=== PATIENT | male | born 1995 | race Hispanic/Latino ===

== ENCOUNTER 2024-07-14 09:44 | Emergency (ER) | payer OTHER, SELFPAY ==
--- NOTE | ~2024-07-14 | CT_ITS ---
EXAMINATION: CT thoracic lumbar wo con DATE: 07/14/2024 13:20 INDICATION: Trauma with chest wall pain post fall from 8 foot ceiling TECHNIQUE: Computed tomography (CT) of the thoracic and lumbar spine was performed without intravenou s contrast. Automated exposure control and iterative reconstruction technique were employed. The dose -length product was 2015.80 mGy-cm. COMPARISON: None FINDINGS: Thoracic spine: 8 degrees thoracic dextrocurvature. Sagittal alignment is normal. There is 12 paired rib bearing thor acic segments. Chronic appearing mild likely physiologic anterior wedging at T11. Vertebral body heig hts are otherwise normal. No acute fracture. Multilevel mild to moderate disc height loss throughout the thoracic spine. Multilevel moderate upper thoracic and mild mid and lower thoracic facet osteoart hritis. No central canal or neural foraminal stenosis. Mild discoid atelectasis in the dependent left lower lobe. Heart size appears normal. Thoracic aorta is normal in caliber. Small sliding-type hiata l hernia. Visualized portions of the mediastinum are unremarkable. Lumbar spine: There are 4 nonrib-bearing lumbar segments, L1-L4. 5 degrees lumbar levocurvature. Sagittal alignment is normal. Vertebral body and disc heights are normal. Mild disc bulges at L2-L3, L3-L4 and L4-S1 wi thout significant central canal stenosis. Multilevel mild lumbar facet osteoarthritis and mild osteoa rthritis at the bilateral sacroiliac joints. Minimal to mild bilateral neural from stenosis at L1-L2 through L3-L4. Paravertebral soft tissues are unremarkable. IMPRESSION: 1. Mild to moderate thoracic spondylosis and minimal lumbar spondylosis with chronic appearing mild l ikely physiologic anterior wedging at T11. No evident acute osseous abnormality in the thoracic or taylor mbar spine. Reviewed, dictated and finalized at location A. IMPRESSION: 1. Mild to moderate thoracic spondylosis and minimal lumbar spondylosis with ch ronic appearing mild likely physiologic anterior wedging at T11. No evident acu te osseous abnormality in the thoracic or lumbar spine.
--- NOTE | ~2024-07-14 | CT_ITS ---
EXAMINATION: CT cervical spine wo con DATE: 07/14/2024 13:20 INDICATION: Trauma with fall from 8 foot ceiling TECHNIQUE: Computed tomography (CT) of the cervical spine was performed without intravenous contrast. Automated exposure control and iterative reconstruction technique were employed. The dose-length pro duct was 442.70 mGy-cm. COMPARISON: None FINDINGS: Likely positional straightening of the normal cervical lordosis. No spondylolisthesis or facet sublux ation. Vertebral body heights are normal. No fracture. Disc heights are normal. Minimal to mild osteo arthritis at a few of the cervical facet and uncovertebral joints. There is moderate osteoarthritis a t the visualized upper thoracic facet joints. Cervical soft tissues are unremarkable. Visualized apic es of lungs are clear. IMPRESSION: 1. Minimal to mild cervical facet and uncovertebral osteoarthritis and moderate upper thoracic facet osteoarthritis. No acute osseous abnormality. Reviewed, dictated and finalized at location A.
--- NOTE | ~2024-07-14 | CT_ITS ---
EXAMINATION: CT brain wo con DATE: 07/14/2024 13:19 INDICATION: Trauma post fall from 8 foot ceiling. TECHNIQUE: Computed tomography (CT) of the head was performed without intravenous contrast. Sagittal and coronal reconstructions were performed. The mA was adjusted according to patient size. Iterative reconstruction technique was employed. The dose-length product was 605.33 mGy-cm. COMPARISON: None FINDINGS: No fracture. No acute intracranial hemorrhage, acute infarction or abnormal extra axial fluid collect ion. Ventricles are normal and symmetric. No mass/mass effect. The orbits and mastoid air cells are n ormal. There is some mucosal thickening in the left maxillary sinus. IMPRESSION: 1. Normal brain. No fracture or acute intracranial process. Reviewed, dictated and finalized at location A.
--- NOTE | ~2024-07-14 | XR_ITS ---
XR chest 1V portable Ordering provider: Kayden Alicia MD History: 29 years Male with . chest wall pain, trauma PT HAD A FALL . Comparison: None. FINDINGS: MEDIASTINUM: The cardiac silhouette is not enlarged. LUNGS: No infiltrates, effusions or pneumothorax. Slightly prominent markings in the lower lobes. OTHER: No free air under the diaphragm. Highly suggestive fracture in the right seventh rib. IMPRESSION: Highly suggestive fracture in the right seventh rib. Other appearances are unremarkable. Reviewed, dictated and finalized at location A.
[2024-07-14 09:47] VITALS: BP 131/76; PULSE 80; RESP 16; TEMP 36.3; O2SAT 99
[2024-07-14 14:09] VITALS: BP 123/65; PULSE 74; RESP 16; TEMP 36.3; O2SAT 99
--- OUTSIDE RECORDS SUMMARY | 2024-07-14 14:12 | XMS_ITS | Clinical Summary ---
Author Organization [facility] Address [facility] [place] [address] Care Team Providers [facility] Administrator Name Role Phone Brissa Betancourt MD Primary Care Provider + Allergies No known active allergies Medications No known medications Active Problems Problem Noted Date Diagnosed Date Obesity (BMI 30.0-34.9) 06/03/2024 Encounters Date Type Department Care Team Description 06/03/2024 9:10 AM AGRICULTURAL SCIENCES PROFESSOR Office Visit [facility] [address] [id number] Brissa Betancourt MD New Patient (Here to get established); Annual (Needing annual check up. He is going to bariatric doctor and he states he needs lab work. Pt is doing this online. ) 06/03/2024 - 06/03/2024 11:59 PM AGRICULTURAL SCIENCES PROFESSOR Hospital Encounter [facility] [place] [address] Brissa Betancourt MD Discharge Disposition: Home or Self Care (Routine Discharge) 06/03/2024 Travel from Last 3 Months Family History Medical History Relation Comments No Known Problems Father No Known Problems Mother No Known Problems Sister Relation Status Comments Father Alive Mother Alive Sister Alive Social History Tobacco Use Types Packs/Day Years Used Date Smoking Tobacco: Former Cigarettes - 2023 Passive Smoke Exposure: Never Smokeless Tobacco: Never Tobacco Cessation:Counseling Given: No Comments:Social/ vaped more then cigarettes. Alcohol Use Standard Drinks/Week Comments Yes 0 (1 standard drink = 0.6 oz pur e alcohol) socially, 2-3/weekend PHQ-2 Answer Date Recorded Patient Health Questionnaire-2 Score 0 06/03/2024 Sex and Gender Information Value Date Recorded Sex Assigned at Not on file Legal Sex Male 3:45 PM AGRICULTURAL SCIENCES PROFESSOR Gender Identity Not on file Sexual Orientation Not on file Last Filed Vital Signs Vital Sign Reading Time Taken Comments Blood Pressure 110/80 06/03/2024 9:20 AM AGRICULTURAL SCIENCES PROFESSOR Pulse 84 06/03/2024 9:20 AM AGRICULTURAL SCIENCES PROFESSOR Temperature 37.1 C (98.7 F) 06/03/2024 9:20 AM AGRICULTURAL SCIENCES PROFESSOR Respiratory Rate - - Oxygen Saturation 97% 06/03/2024 9:20 AM AGRICULTURAL SCIENCES PROFESSOR Inhaled Oxygen Concentration - - Weight 93.3 kg (205 lb 9.6 oz) 06/03/2024 9:20 A M AGRICULTURAL SCIENCES PROFESSOR Height 165.1 cm (5' 5 ) 06/03/2024 9:20 AM AGRICULTURAL SCIENCES PROFESSOR Body Mass Index 34.21 06/03/2024 9:20 AM AGRICULTURAL SCIENCES PROFESSOR Plan of Treatment Health Maintenance Due Date Last Done Comments DTaP, Tdap and Td Vaccines ( 1 - Tdap) 2013 Hepatitis B Vaccines (1 of 3 - 19+ 3-dose series) 2013 Influenza Adult (#1) 2024 COVID-19 Vaccine (2 - 2023-2 5 season) 2024 12/03/2023 Annual Physical 06/03/2025 06/03/2024 Hepatitis C Completed 06/03/2024 PHQ-2 (Physician [place]) Completed 06/03/2024 HPV Vaccines Aged Out No longer eligi ble based on patient's age to complete this topic Meningococcal B Vaccine Aged Out No l onger eligible based on patient's age to complete this topic Meningococcal Vaccine Aged Out No cinthia ye eligible based on patient's age to complete this topic Pneumococcal Vaccine: Pediat rics (0 to 5 Years) and At-Risk Patients (6 to 64 Years) Aged Out No longer eligi ble based on patient's age to complete this topic RSV Immunizations Under 20 Months Aged Out No longer eligible based on patient's age to complete this topic Procedures Procedure Name Priority Date/Time Associated Diagnosis Comments HEMOGLOBIN, GLYCOSYLATED Routine 06/03/2024 9:56 AM AGRICULTURAL SCIENCES PROFESSOR Routine general medical examination at a health care facility LIPID PANEL Routine 06/03/2024 9:56 AM AGRICULTURAL SCIENCES PROFESSOR Routine general medical examination at a health care facility CBC W/DIFF AUTOMATED Routine 06/03/2024 9:56 AM AGRICULTURAL SCIENCES PROFESSOR Routine general medical examination at a [facility] care facility COMPREHENSIVE METABOLIC PANEL Routine 06/03/2024 9:56 AM AGRICULTURAL SCIENCES PROFESSOR Routine general medical examination at a [facility] care facility HEPATITIS C ANTIBODY Routine 06/03/2024 9:56 AM AGRICULTURAL SCIENCES PROFESSOR Routine general medical examination at a [facility] care facility from Last 3 Months Results * (ABNORMAL) HEMOGLOBIN, GLYCOSYLATED (06/03/2024 9:56 AM AGRICULTURAL SCIENCES PROFESSOR) HGB A1C 5.5 4.5 - 6.2 % 06/03/2024 3:31 PM AGRICULTURAL SCIENCES PROFESSOR [facility] ESTIMATED AVG GLUCOSE 111(H) 74 - 106 MG/DL 06/03/2024 3:31 PM AGRICULTURAL SCIENCES PROFESSOR [facility] 06/03/2024 9:56 AM AGRICULTURAL SCIENCES PROFESSOR us Brissa Betancourt MD LABORATORY Final Re sult [facility] [address] [place] [address], * (ABNORMAL) COMPREHENSIVE METABOLIC PANEL (06/03/2024 9:56 AM AGRICULTURAL SCIENCES PROFESSOR) SODIUM S/P/B 140 136 - 145 MMOL/L 06/03/2024 3:15 PM AGRICULTURAL SCIENCES PROFESSOR [facility] POTASSIUM S/P/B 4.9 3.5 - 5.1 MMOL/L 06/03/2024 3:15 PM AGRICULTURAL SCIENCES PROFESSOR [facility] CHLORIDE S/P/B 105 98 - 107 MMOL/L 06/03/2024 3:15 PM AGRICULTURAL SCIENCES PROFESSOR [facility] CO2 30.0 21 - 32 MMOL/L 06/03/2024 3:15 PM AGRICULTURAL SCIENCES PROFESSOR [facility] GLUCOSE 100(H) 70 - 99 MG/DL 06/03/2024 3:15 PM [facility] BUN 16 7 - 18 MG/DL 06/03/2024 3:15 PM [facility] CREATININE S/P/B 0.88 0.70 - 1.30 MG/DL 06/03/2024 3:15 PM [facility] CALCIUM S/P/B 9.3 8.4 - 10.5 MG/DL 06/03/2024 3:15 PM [facility] BILIRUBIN TOTAL S/P/B 0.8 0.2 - 1.0 MG/DL 06/03/2024 3:15 PM [facility] ALKALINE PHOSPHATASE S/P/B 145(H) 45 - 115 U/L 06/03/2024 3:15 PM [facility] AST 23 15 - 37 U/L 06/03/2024 3:15 PM [facility] ALT 58 16 - 63 U/L 06/03/2024 3:15 PM [facility] TOTAL PROTEIN S/P/B 7.1 6.4 - 8.2 G/DL 06/03/2024 3:15 PM [facility] ALBUMIN S/P/B 4.2 3.4 - 5.0 G/DL 06/03/2024 3:15 PM [facility] ANION GAP 5.0 5 - 15 MMOL/L 06/03/2024 3:15 PM [facility] Comment:REFERENCE RANGE NOT ESTABLISHED OSMOLALITY (CALC) 291 MOSM/KG 025 3:15 PM [facility] Comment:REFERENCE RANGE NOT ESTABLISHED GFR ESTIMATE >90 >90 ML/MIN/1. 73 M2 06/03/2024 3:15 PM [facility] GFR NOTES GFR REFERENCE S: 06/03/2024 3:15 PM [facility] Comment: THE ESTIMATED GFR IS CALCULATED USING THE 2020 CKD-EPI EQUATION. THE FOLLOWING CATEGORIES FOR GRADING RENAL FUNCTION ARE RECOMMENDED BY THE INTERNATIONAL SOCIETY OF NEPHROLOGY (KDIGO 2012 CLINICAL PRACTICE GUIDELINE). G1,NORMAL OR HIGH: >89 ml/min/1.73 m2 G2,MILDLY DECREASED: 60-89 ml/min/1.73 m2 G3A,MILDLY TO MODERATELY DECREASED: 45-59 ml/min/1.73 m2 G3B,MODERATELY TO SEVERELY DECREASED: 30-44 ml/min/1.73 m2 G4,SEVERELY DECREASED: 15-29 ml/min/1.73 m2 G5,KIDNEY FAILURE: <15 ml/min/1.73 m2 06/03/2024 9:56 AM AGRICULTURAL SCIENCES PROFESSOR us Brissa Betancourt MD LABORATORY Final Re sult [facility] [address] [place] [address], * (ABNORMAL) LIPID PANEL (06/03/2024 9:56 AM AGRICULTURAL SCIENCES PROFESSOR) [facility] CHOLESTEROL 221(H) <200 MG/DL 06/03/2024 3:15 PM AGRICULTURAL SCIENCES PROFESSOR [facility] TRIGLYCERIDES 85 <150 MG/DL 06/03/2024 3:15 PM [facility] HDL 56 >40 MG/DL 06/03/2024 3:15 PM [facility] LDL-C 148(H) <100 MG/DL 06/03/2024 3:15 PM AGRICULTURAL SCIENCES PROFESSOR [facility] VLDL CALCULATION 17 5 - 28 MG/DL 06/03/2024 3:15 PM AGRICULTURAL SCIENCES PROFESSOR [facility] CHOL/HDL RATIO 3.9 0.0 - 4.0 06/03/2024 3:15 PM [facility] LDL/HDL 2.6(H) 0.41 - 2.13 06/03/2024 3:15 PM [facility] NON HDL CHOLESTEROL 165(H) <140 MG/DL 06/03/2024 3:15 PM AGRICULTURAL SCIENCES PROFESSOR [facility] 06/03/2024 9:56 AM AGRICULTURAL SCIENCES PROFESSOR Brissa Betancourt MD LABORATORY Final Re sult [facility] [address] [place] [address], [place] [phone] * HEPATITIS C ANTIBODY (06/03/2024 9:56 AM AGRICULTURAL SCIENCES PROFESSOR) Pathologist [facility] HEPATITIS C AB NON-REACTI VE NON-REACT GEO 06/03/2024 6:52 PM AGRICULTURAL SCIENCES PROFESSOR [facility] Comment: ANTIBODIES TO HCV NOT DETECTED. DOES NOT EXCLUDE THE POSSIBILITY OF EXPOSURE TO HCV. 06/03/2024 9:56 AM AGRICULTURAL SCIENCES PROFESSOR Brissa Betancourt MD LABORATORY Final Re sult Performing Organization Address City/State/[facility] Co de Phone Number [facility] [address] [place] [address], [place] [phone] * (ABNORMAL) CBC W/DIFF AUTOMATED (06/03/2024 9:56 AM AGRICULTURAL SCIENCES PROFESSOR) Pathologist [facility] WBC 8.37 4.00 - 10.80 x10'3/uL 06/03/2024 3:11 PM AGRICULTURAL SCIENCES PROFESSOR [facility] RBC 4.97 4.50 - 6.10 x10'6/uL 06/03/2024 3:11 PM AGRICULTURAL SCIENCES PROFESSOR [facility] HGB 14.8 13.0 - 18.0 G/DL 06/03/2024 3:11 PM AGRICULTURAL SCIENCES PROFESSOR [facility] HCT 45.8 37.0 - 52.0 % 06/03/2024 3:11 PM [facility] MCV 92.2 78.0 - 100.0 FL 06/03/2024 3:11 PM AGRICULTURAL SCIENCES PROFESSOR [facility] MCH 29.8 27.0 - 31.0 PG 06/03/2024 3:11 PM [facility] MCHC 32.3(L) 33.0 - 36.0 G/DL 06/03/2024 3:11 PM [facility] RDW 12.6 11.5 - 14.5 % 06/03/2024 3:11 PM [facility] PLT 340 150 - 350 x10'3/uL 06/03/2024 3:11 PM [facility] MPV 9.4 7.4 - 10.4 FL 06/03/2024 3:11 PM [facility] DIFFERENTIAL TYPE AUTOMATED DIFFERENTIAL 06/03/2024 3:11 PM [facility] NEUTROPHILS % 71.5 % 06/03/2024 3:11 PM [facility] LYMPHOCYTES % 15.5 % 06/03/2024 3:11 PM [facility] MONOCYTES % 9.3 % 06/03/2024 3:11 PM [facility] EOSINOPHILS % 2.9 % 06/03/2024 3:11 PM [facility] BASOPHILS % 0.2 % 06/03/2024 3:11 PM [facility] IMMATURE GRANS % 0.6 % 06/03/2024 3:11 PM [facility] ABS. NEUTROPHILS 5.98 1.60 - 8.30 x10'3/uL 06/03/2024 3:11 PM [facility] ABS. LYMPHOCYTES 1.30 0.80 - 4.70 x10'3/uL 06/03/2024 3:11 PM [facility] ABS. MONOCYTES 0.78 0.00 - 1.50 x10'3/uL 06/03/2024 3:11 PM [facility] ABS. EOSINOPHILS 0.24 0.00 - 0.40 x10'3/uL 06/03/2024 3:11 PM AGRICULTURAL SCIENCES PROFESSOR -[facility] ABS. BASOPHILS 0.02 0.00 - 0.20 x10'3/uL 06/03/2024 3:11 PM AGRICULTURAL SCIENCES PROFESSOR [facility] ABS. IMMATURE GRANULOCYTES 0.05(H) 0.00 - 0.03 x10'3/uL 06/03/2024 3:11 PM AGRICULTURAL SCIENCES PROFESSOR [facility] 06/03/2024 9:56 AM AGRICULTURAL SCIENCES PROFESSOR us Brissa Betancourt MD LABORATORY Final Re sult [facility] [address] [place] [address], [place] [phone] from Last 3 Months Insurance [facility] Care Teams Surgery Center Administrator Relationship Specialty Start Date End Date Brissa Betancourt MD [address] [place] [id number] PCP - General FAMILY PRACTICE 06/03/24
--- NOTE | 2024-07-14 14:19 | ED_ITS ---
HPI - General Adult General Chief complaint: Fall Stated complaint: fall Time Seen by Provider: 07/14/24 12:03 History of Present Illness HPI narrative: 29-year-old male present to the emergency department for evaluation after having a fall through 8 ft ceiling. Patient states he was replacing insulation in an attic and fell through the ceiling. Patient states he did land on his back. Patient was days pace 80s had no loss of consciousness. Patient does have an abrasion to his head and is complaining of thoracic back pain. Patient is neurologically intact. Patient is Citizen [place]-speaking but family is helping to translate in the declined the use of the project specialist [employer]. Related Data Allergies Allergy/AdvReac Type Severity Reaction Status Date / Time No Known Allergies Allergy Verified 07/14/24 09:48 Review of Systems Review of Systems: All systems reviewed & are unremarkable except as noted in HPI and below Exam Narrative: APPEARANCE: Well appearing, no pain, no distress, well-nourished. HEAD: normocephalic, patient to write for. EYES: PERRLA/EOMI, conjunctivae clear. NOSE: Normal no drainage EARS:TMS clear with good light reflex. THROAT: Pharynx clear, no exudate. NECK: Supple. No adenopathy, no masses. RESPIRATORY: Airway patent, respirations nonlabored. Clear to auscultation bilaterally, no rales, rhonchi, wheezing. CARDIOVASCULAR: Regular rate and rhythm without murmurs rubs or gallops. ABDOMINAL: Soft, nontender, nondistended, normal bowel sounds MUSCULOSKELETAL: Left rib tenderness to palpation NEURO: Alert. Cranial nerves II through XII intact. SKIN: Warm, dry. Normal Color Course Vital Signs Vital signs: Vital Signs Temperature 97.3 F L 07/14/24 09:47 Pulse Rate 80 07/14/24 09:47 Respiratory Rate 16 07/14/24 09:47 Blood Pressure 131/76 07/14/24 09:47 Pulse Oximetry 99 07/14/24 09:47 Temperature 97.3 F L 07/14/24 14:09 Pulse Rate 74 07/14/24 14:09 Respiratory Rate 16 07/14/24 14:09 Blood Pressure 123/65 07/14/24 14:09 Pulse Oximetry 99 07/14/24 14:09 Medical Decision Making [facility] Narrative Medical decision making narrative: 29-year-old male presents to the emergency department for evaluation for a fall at [address] was negative thoracic spine CT did show possible mild chronic T11 wedge fracture. Patient does have a possible left-sided 7th rib fracture with no underlying pneumonia or pneumothorax. Patient was provided incentive spirometer medication for pain control. Patient declined any medication for pain control emergency department. Differential Diagnosis Differential Diagnosis: Subdural hematoma, subarachnoid hemorrhage, cervical spine fracture, rib fracture, pneumonia, pneumothorax Vital Signs Vital Signs: Vital Signs Temperature 97.3 F L 07/14/24 09:47 Pulse Rate 80 07/14/24 09:47 Respiratory Rate 16 07/14/24 09:47 Blood Pressure 131/76 07/14/24 09:47 Pulse Oximetry 99 07/14/24 09:47 Temperature 97.3 F L 07/14/24 14:09 Pulse Rate 74 07/14/24 14:09 Respiratory Rate 16 07/14/24 14:09 Blood Pressure 123/65 07/14/24 14:09 Pulse Oximetry 99 07/14/24 14:09 Imaging Data Radiologist's impression: Impressions Head CT 07/14/24 13:22 IMPRESSION: 1. Normal brain. No fracture or acute intracranial process. Cervical Spine CT 07/14/24 13:26 IMPRESSION: 1. Minimal to mild cervical facet and uncovertebral osteoarthritis and moderate upper thoracic facet osteoarthritis. No acute osseous abnormality. Thoracic/Lumbar Spine CT 07/14/24 13:44 IMPRESSION: 1. Mild to moderate thoracic spondylosis and minimal lumbar spondylosis with chronic appearing mild likely physiologic anterior wedging at T11. No evident acute osseous abnormality in the thoracic or lumbar spine. Chest X-Ray 07/14/24 13:51 IMPRESSION: Highly suggestive fracture in the right seventh rib. Other appearances are unremarkable. Discharge Plan Discharge Clinical Impression: Head injury, Closed rib fracture Patient Disposition: Home, Self-Care Condition: Stable Instructions: Antibiotic Form, How to Use an Incentive Spirometer (ED), Rib Fracture (ED), Head Injury (ED) Additional Instructions: Ibuprofen for pain control. [place] as needed for additional pain control. Flexeril as needed for muscle spasm. Incentive spirometer as directed to help prevent pneumonia. If you have any worsening symptoms then please call or return to the emergency department. Patient Language: Citizen [place] Prescriptions: New cyclobenzaprine 10 mg tablet 10 mg PO BID PRN (Reason: muscle spasm) Qty: 14 0RF hydrocodone-acetaminophen 5-325 mg tablet 1 tablet PO Q12H PRN (Reason: pain) Qty: 14 0RF Follow-up/Referrals: PHYSICIAN NOT ON STAFF,NONSTAFF [Primary Care Provider] - Stand Alone Forms: Work/School Release IP
== END 2024-07-14 14:44 | disposition home or self-care (01) ==
PROVIDERS: Emergency Provider Emergency Medicine
DX: S22.31XA Fracture of one rib, right side, initial encounter for closed fracture (principal); S09.90XA Unspecified injury of head, initial encounter; M47.814 Spondylosis without myelopathy or radiculopathy, thoracic region; W13.8XXA Fall from, out of or through other building or structure, initial encounter
CPT/HCPCS: 70450; 71045; 72125; 72128; 72131; 99284